=== PATIENT | male | born 1975 | race American Indian/Alaskan Native ===

== ENCOUNTER 2021-11-02 10:56 | Emergency (ER) | payer SELFPAY ==
[2021-11-02] MEDS ORDERED: HYDROcodone/ACETAMINOPHEN 5-325 MG TAB PO ONE (11:06)
[2021-11-02] MEDS ORDERED: CLINDAMYCIN 150 MG/ML 2 ML VIAL IM ONE (11:06)
--- NOTE | 2021-11-02 11:11 | Emergency Department Report ---
- General Chief complaint: Skin/Abscess/Foreign Body Stated complaint: BOIL Time Seen by Provider: 11/02/21 11:06 Source: patient Mode of arrival: Ambulatory Limitations: No Limitations - History of Present Illness Initial comments: 46 yo come to ER with left buttocks pain- he has hx of cellulitis and abscess to the area. Usually sees PCP at [place] but has not this time. 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 Ambulatory non ill non toxic appearing no fever or chills denies drainage from the area complaint: other -: Gradual, week(s) Tetanus Up to Date: yes Location: buttocks Severity: mild Consistency: constant Improves with: none Worsens with: none Context: none Associated symptoms: denies other symptoms Treatments Prior to Arrival: none - Related Data Previous Rx's Medication Instructions Recorded Last Taken Type Clindamycin [Clindamycin CAP] 300 mg PO Q8H #30 cap 11/02/21 Unknown Rx Ibuprofen [Motrin] 800 mg PO Q8HR PRN #30 tablet 11/02/21 Unknown Rx Allergies Allergy/AdvReac Type Severity Reaction Status Date / Time No Known Allergies Allergy Unverified 11/02/21 10:58 Abscess Boil HPI - HPI Chief Complaint: Skin/Abscess/Foreign Body Stated Complaint: BOIL Time Seen by Provider: 11/02/21 11:06 Home Medications: Previous Rx's Medication Instructions Recorded Last Taken Type Clindamycin [Clindamycin CAP] 300 mg PO Q8H #30 cap 11/02/21 Unknown Rx Ibuprofen [Motrin] 800 mg PO Q8HR PRN #30 tablet 11/02/21 Unknown Rx Allergies/Adverse Reactions: Allergies Allergy/AdvReac Type Severity Reaction Status Date / Time No Known Allergies Allergy Unverified 11/02/21 10:58 ED Review of Systems ROS: Stated complaint: BOIL Other details as noted in HPI Comment: All other systems reviewed and negative ED Past Medical Hx - Past Medical History Previous Medical History?: Yes Hx Hypertension: Yes Hx Diabetes: Yes - Surgical History Past Surgical History?: Yes Additional Surgical History: i&d - Family History Family history: no significant - Social History Smoking Status: Never Smoker Substance Use Type: None - Medications Home Medications: Home Medications Medication Instructions Recorded Confirmed Last Taken Type Clindamycin [Clindamycin CAP] 300 mg PO Q8H #30 cap 11/02/21 Unknown Rx Ibuprofen [Motrin] 800 mg PO Q8HR PRN #30 tablet 11/02/21 Unknown Rx ED Physical Exam - General Limitations: No Limitations General appearance: alert, in no apparent distress - Head Head exam: Present: atraumatic, normocephalic - Eye Eye exam: Present: normal appearance - ENT ENT exam: Present: mucous membranes moist - Neck Neck exam: Present: normal inspection - Respiratory Respiratory exam: Present: normal lung sounds bilaterally. Absent: respiratory distress - Cardiovascular Cardiovascular Exam: Present: regular rate, normal rhythm. Absent: systolic murmur, diastolic murmur, rubs, gallop - GI/Abdominal GI/Abdominal exam: Present: soft, normal bowel sounds - Rectal Rectal exam: Present: deferred - Extremities Exam Extremities exam: Present: normal inspection - Back Exam Back exam: Present: normal inspection - Neurological Exam Neurological exam: Present: alert, oriented X3 - Psychiatric Psychiatric exam: Present: normal affect, normal mood - Skin Skin exam: Present: warm, dry, intact, normal color, other. Absent: rash - Expanded Skin Exam Expanded 1 - 2x2 inch area of red and firm tissue- not yet to a head; pt has hx abscess here in the past. no area for I/D. no drainage. ED Course Vital Signs 11/02/21 11:01 Temperature 98.6 F Pulse Rate 115 H Respiratory 20 Rate Blood Pressure 141/97 O2 Sat by Pulse 94 Oximetry ED Medical Decision Making - Medical Decision Making Vital Signs 11/02/21 11:01 Temperature 98.6 F Pulse Rate 115 H Respiratory 20 Rate Blood Pressure 141/97 O2 Sat by Pulse 94 Oximetry HR by provider p pain meds 90 no fever or chills ambulatory to ER non ill on exam non toxic on exam taking po left buttock - no flat. for I/D hx of ID of this area skin involved is superficial and not involving rectum sees at [place]- he has not seen him for this medicated with IM clinda and for pain dc home with dc instructions including diet, activity, meds and follow up. He verbalizes understanding of plan of care. - Differential Diagnosis cellultis/abscess/boil Critical care attestation.: If time is entered above; I have spent that time in minutes in the direct care of this critically ill patient, excluding procedure time. ED Disposition Clinical Impression: Cellulitis, Hx of diabetes mellitus, History of hypertension Disposition: 01 HOME / SELF CARE / HOMELESS Is pt being admited?: No Does the pt Need Aspirin: No Condition: Stable Instructions: Cellulitis, Adult Additional Instructions: meds as ordered today motrin or tylenol for pain may alternate for best relief soak in tub of epsom salts to soften area it may come to a head and then require drainage follow up with pcp in 48 hours for recheck referral below diabetic diet keep your bg controlled- will help with wound healing stay well hydrated with water Prescriptions: Clindamycin [Clindamycin CAP] 300 mg PO Q8H #30 cap Ibuprofen [Motrin] 800 mg PO Q8HR PRN #30 tablet PRN Reason: Pain, Moderate (4-6) Referrals: ALEXANDREA BURT MD [Staff Physician] - 3-5 Days [facility] [Outside] - 3-5 Days Time of Disposition: 11:09
[2021-11-02 12:42] VITALS: BP 130/95
== END 2021-11-02 12:39 | disposition home or self-care (01) ==
LOC: ED 10:56
DX: L03.317 Cellulitis of buttock (principal); I10 Essential (primary) hypertension; E11.9 Type 2 diabetes mellitus without complications; Z98.890 Other specified postprocedural states; Z79.899 Other long term (current) drug therapy
CPT/HCPCS: 96372; 99282; J3490